=== PATIENT | female | born 2000 | race African-American/Black ===

== ENCOUNTER 2024-12-03 07:50 | Emergency (ER) | payer OTHER ==
[~2024-12-03] VITALS: Ht 162.6 cm; Wt 62.0 kg
[2024-12-03] MEDS ORDERED: HYDR-3363 PO (08:19)
[2024-12-03] MEDS ORDERED: NOXI1TAB PO (08:19)
[2024-12-03] MEDS ORDERED: LEXA5TAB13 PO (08:19)
[2024-12-03] MEDS ORDERED: VITA25TA3 PO (08:19)
[2024-12-03] MEDS: ONDANSETRON 4MG ORAL DISINTEGRATING TAB PO ONE (11:37)
[2024-12-03 12:27] VITALS: BP 105/61; TEMP 98.3; O2SAT 98
== END 2024-12-03 12:30 | disposition home or self-care (01) ==
LOC: M ED 07:50
DX: R11.0 Nausea (principal); F17.210 Nicotine dependence, cigarettes, uncomplicated; F10.10 Alcohol abuse, uncomplicated; Z79.899 Other long term (current) drug therapy

== ENCOUNTER 2025-01-14 12:39 | Emergency (ER) | payer OTHER ==
[~2025-01-14] VITALS: Ht 162.6 cm; Wt 61.4 kg
[~2025-01-14 12:39] MED LIST: HYDR-3363 PO; LEXA5TAB13 PO; NOXI1TAB PO; VITA25TA3 PO
[2025-01-14] MEDS: VITAMIN A & D OINTMENT 42.5GM EXT ONE (14:25)
[2025-01-14 15:29] LABS: HIV 1&2 SCREEN NEGATIVE (NEGATIVE)
[2025-01-14 15:36] LABS: Trichomonas vaginalis (AMP) NOT DETECTED (NEGATIVE)
[2025-01-14 16:00] LABS: GC DNA AMPLIFICATION NEGATIVE (NEGATIVE)
[2025-01-14 17:06] VITALS: BP 105/60; TEMP 97.2; O2SAT 100
== END 2025-01-14 17:10 | disposition home or self-care (01) ==
LOC: M ED 12:39
DX: L29.2 Pruritus vulvae (principal); F17.210 Nicotine dependence, cigarettes, uncomplicated; Z79.899 Other long term (current) drug therapy